=== PATIENT | female | born 1960 | race Caucasian/White ===

== ENCOUNTER 2016-02-24 15:32 | Emergency (ER) | payer OTHER, MEDICAID ==
[2016-02-24] MEDS ORDERED: PROPARACAINE 0.5% OPHTH DROPS 15 ML LEFTEYE STA (16:08)
[2016-02-24] MEDS ORDERED: PROPARACAINE 0.5% OPHTH DROPS 15 ML ONE (16:18)
== END 2016-02-24 16:54 | disposition home or self-care (01) ==
DX: S00.83XA Contusion of other part of head, initial encounter (principal); S00.01XA Abrasion of scalp, initial encounter; S00.212A Abrasion of left eyelid and periocular area, initial encounter; W10.9XXA Fall (on) (from) unspecified stairs and steps, initial encounter; Y93.01 Activity, walking, marching and hiking; Y99.8 Other external cause status; I10 Essential (primary) hypertension; Z86.73 Personal history of transient ischemic attack (TIA), and cerebral infarction without residual deficits
CPT/HCPCS: 70486; 99283; J3490

== ENCOUNTER 2016-07-18 20:42 | Emergency (ER) | payer MEDICARE, MEDICAID, OTHER ==
--- NOTE | 2016-07-18 21:51 | ED Physician Documentation ---
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) Timing - onset: Last night Timing - details: Abrupt onset, Still present Similar symptoms before: Has not had sx before Recently seen: Not recently seen Review of Systems Constitutional: denies: Fever, Chills Skin: denies: Rash, Lesions Neurologic: denies: Focal weakness, Numbness PD PAST MEDICAL HISTORY - Past Medical History Cardiovascular: Hypertension Neuro: CVA, TIA, Headache/migraine Psych: Depression, Post traumatic stress disorder Musculoskeletal: Osteoarthritis, Chronic back pain - Past Surgical History Past Surgical History: Yes General: Cholecystectomy Ortho: Arthroscopic surgery, Carpal Tunnel surgery, 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, Hysterectomy HEENT: Tonsil/Adenoidectomy - Present Medications Home Medications: Ambulatory Orders Medication Instructions Recorded Confirmed Sertraline HCl [Zoloft] 100 mg PO DAILY 01/24/15 07/18/16 Gabapentin 300 mg PO TID 02/24/16 07/18/16 Hydrocodone/Acetaminophen [[place] 1 each PO Q6H PRN #15 tablet 07/18/16 5-325 Tablet] Naproxen [Naprosyn] 500 mg PO BID #20 tablet 07/18/16 - Allergies Allergies/Adverse Reactions: Allergies Allergy/AdvReac Type Severity Reaction Status Date / Time Sulfa (Sulfonamide Allergy Hives Verified 01/24/15 08:59 Antibiotics) - Social History Does the pt smoke?: No Smoking Status: Never smoker Does the pt drink ETOH?: Yes Does the pt have substance abuse?: No - Immunizations Immunizations are current?: Yes - POLST Patient has POLST: No PD ED PE NORMAL - Vitals Vital signs reviewed: Yes - General General: Alert and oriented X 3, Well developed/nourished - Back Back: No CVA TTP, No spinal TTP - Derm Derm: Normal color, Warm and dry, No rash - Extremities Extremities: Other (right hip with tenderness over greater trochanter. No deformity.) Results - Vitals Vitals: Oxygen O2 Source Room air - Rads (name of study) hip Radiology: Prelim report reviewed, EMP read contemporaneously (no fractures) PD MEDICAL DECISION MAKING - ED course Complexity details: reviewed results, considered differential, d/w patient Departure - Departure Disposition: 01 Home, Self Care Clinical Impression: Strain of right hip Qualifiers: Encounter type: initial encounter Qualified Code(s): S76.011A - Strain of muscle, fascia and tendon of right hip, initial encounter Condition: Stable Record reviewed to determine appropriate education?: Yes Instructions: ED Sprain Hip [facility] [Provider Group] Prescriptions: Naproxen [Naprosyn] 500 mg PO BID #20 tablet Hydrocodone/Acetaminophen [[place] 5-325 Tablet] 1 each PO Q6H PRN #15 tablet PRN Reason: Pain Comments: Activity as able based on comfort. Naproxen twice daily for a week. Add Tylenol or hydrocodone as needed for pains. Recheck if not better in several days to a week. Discharge Date/Time: 07/18/16 23:26
[2016-07-18] MEDS ORDERED: IBUPROFEN 600 MG TABLET PO STA (22:12)
[2016-07-18] MEDS ORDERED: HYDROcod/ACETAM 5/325 MG TABLET PO STA (22:12)
[2016-07-18] MEDS ORDERED: oxyCOD/ACETAMIN 5 MG/325 MG TABLET PO ONE (22:15)
[2016-07-18] MEDS ORDERED: IBUPROFEN 600 MG TABLET PO ONE (22:15)
[2016-07-18] MEDS ORDERED: HYDROcod/ACETAM 5/325 MG TABLET ONE (22:19)
[2016-07-18 22:28] VITALS: BP 140/68
--- NOTE | 2016-07-18 22:54 | XRAY Preliminary Report ---
Exam: XR Hip w/Pelvis 2-3V RT IMPRESSION: 1. No acute fracture or dislocation seen. 2. Mild degenerative joint disease in the right hip. [facility] SITE ID: [id number]
--- NOTE | 2016-07-18 22:56 | XRAY Report ---
EXAM: RIGHT HIP AND PELVIS RADIOGRAPHY EXAM DATE: 07/18/2016 10:44 PM. HISTORY: Right lateral hip pain after twisting movement. COMPARISONS: None. TECHNIQUE: 1 view of the pelvis and 1 view of the hip. FINDINGS: Bones: No acute fracture seen. Postoperative changes in the lower lumbar spine with posterior metalli c fusion. Joints: No dislocation. Mild degenerative joint disease in the right hip. Soft Tissues: Grossly unremarkable. IMPRESSION: 1. No acute fracture or dislocation seen. 2. Mild degenerative joint disease in the right hip. [facility] Referring Provider Line: [phone] SITE ID: [id number]
[2016-07-18] MEDS ORDERED: HYDROcod/ACET 5/325 Prepack 6 PO ONE ×2 (22:58→23:15)
== END 2016-07-18 23:26 | disposition home or self-care (01) ==
LOC: ED 20:42
DX: S76.911A Strain of unspecified muscles, fascia and tendons at thigh level, right thigh, initial encounter (principal); X50.0XXA Overexertion from strenuous movement or load, initial encounter; I10 Essential (primary) hypertension; Z86.73 Personal history of transient ischemic attack (TIA), and cerebral infarction without residual deficits; M19.90 Unspecified osteoarthritis, unspecified site
CPT/HCPCS: 73502; 99283; A9270

== ENCOUNTER 2016-08-06 14:01 | Emergency (ER) | payer MEDICARE, OTHER, MEDICAID ==
[2016-08-06 14:11] VITALS: BP 144/76
--- NOTE | 2016-08-06 15:29 | XRAY Preliminary Report ---
Exam: XR Hand 3 View LT IMPRESSION: 1. No acute fracture evident. 2. Degenerative changes noted above. [facility] SITE ID: [id number]
--- NOTE | 2016-08-06 15:32 | XRAY Report ---
EXAM: LEFT HAND RADIOGRAPHY EXAM DATE: 08/06/2016 02:47 PM. CLINICAL HISTORY: Injury. COMPARISON: None. TECHNIQUE: 3 views. FINDINGS: Bones: Normal. No fractures or bone lesions. A screw overlies triquetral bone. Joints: Positive ulnar variance. Narrowing of radiocarpal joint space. Osteophytes along first carpometacarpal joint. Soft Tissues: Normal. No soft tissue swelling. IMPRESSION: 1. No acute fracture evident. 2. Degenerative changes noted above. [facility] Referring Provider Line: [phone] SITE ID: [id number]
== END 2016-08-06 16:06 | disposition left against medical advice (07) ==
LOC: ED 14:01
DX: Z53.21 Procedure and treatment not carried out due to patient leaving prior to being seen by health care provider (principal)

== ENCOUNTER 2017-03-06 12:49 | Emergency (ER) | payer MEDICARE, OTHER, MEDICAID ==
--- NOTE | 2017-03-06 13:47 | XRAY Report ---
EXAM: LEFT SHOULDER RADIOGRAPHY EXAM DATE: 03/06/2017 01:23 PM. CLINICAL HISTORY: Injury. COMPARISON: None. TECHNIQUE: 3 views. FINDINGS: Bones: No fracture or destructive bony abnormality. There is spurring of the acromioclavicular joint. Joints: Joint space and alignment is satisfactory. Soft tissues: Negative for soft tissue calcifications and left pneumothorax. IMPRESSION: No fracture or subluxation. Degenerative disease of the acromioclavicular joint. [facility] Referring Provider Line: [phone] SITE ID: [id number]
--- NOTE | 2017-03-06 14:07 | ED Physician Documentation ---
PD HPI UPPER EXT INJURY - Stated complaint Stated Complaint: LEFT SHOULDER PX - Chief complaint Chief Complaint: Ext Problem - History obtained from History obtained from: Patient - History of Present Illness Location: Right, Shoulder (She had a near fall yesterday and kind of had to throw a hay bale to prevent from falling and felt a pop in the anterior and posterior left shoulder and has persistent pain and difficulty with range of motion. 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, Hysterectomy HEENT: Tonsil/Adenoidectomy - Present Medications Home Medications: Ambulatory Orders Medication Instructions Recorded Confirmed Sertraline HCl [Zoloft] 100 mg PO DAILY 01/24/15 08/06/16 Gabapentin 300 mg PO TID 02/24/16 08/06/16 Bimatoprost 0.01% Ophth Dops 1 drops OP DAILY 08/06/16 08/06/16 [[place] 0.01% Ophth Drops] HYDROcod/ACETAM 5/325 [[place]ame[place] 5/325] 1 - 2 ea PO Q6H PRN #15 tablet 03/06/17 - Allergies Allergies/Adverse Reactions: Allergies Allergy/AdvReac Type Severity Reaction Status Date / Time Sulfa (Sulfonamide Allergy Hives Verified 03/06/17 13:02 Antibiotics) - Social History Does the pt smoke?: No Smoking Status: Never smoker Does the pt drink ETOH?: Yes Does the pt have substance abuse?: No - Immunizations Immunizations are current?: Yes - POLST Patient has POLST: No PD ED PE NORMAL - Vitals Vital signs reviewed: Yes - General General: Alert and oriented X 3, No acute distress - Neck Neck: Supple, no meningeal sign, No bony TTP - Extremities Extremities: Other (Mild tenderness over the top and posterior of the left shoulder, abducts to about 90 but no further, no better passively than actively , negative supraspinatus testing, painless internal and external rotation.) - Neuro Neuro: Alert and oriented X 3, Normal speech Results - Vitals Vitals: Vital Signs - 24 hr 03/06/17 13:00 Temperature 36.9 C Heart Rate 87 Respiratory 18 Rate Blood Pressure 153/67 H O2 Saturation 100 Oxygen O2 Source Room air - Rads (name of study) 3 views of the left shoulder Radiology: EMP read contemporaneously (Degenerative disease of the acromioclavicular joint without acute fracture.) Departure - Departure Disposition: 01 Home, Self Care Clinical Impression: Sprain of left shoulder Qualifiers: Encounter type: initial encounter Shoulder sprain type: other part of shoulder region Qualified Code(s): S43.492A - Other sprain of left shoulder joint, initial encounter Condition: Good Record reviewed to determine appropriate education?: Yes Instructions: ED Sprain Shoulder Follow-Up: [facility] [Provider Group] - Within 1 week Prescriptions: HYDROcod/ACETAM 5/325 [[place] 5/325] 1 - 2 ea PO Q6H PRN #15 tablet PRN Reason: Pain Comments: Do not drink or drive while taking narcotic pain medication. Note that many narcotic pain relievers also contain Tylenol/acetaminophen. Please ensure that your total dose of acetaminophen from all sources does not exceed 3 g (3000 mg) per day. You may get constipated while on this medication. Take a stool softener such as Colace twice a day while you are on it. Also add an [id number] laxative such as senna or MiraLAX on any day that you do not have a bowel movement. If you received a narcotic pain medication or sedative while in the emergency department, do not drive for the next 24 hours. Your blood pressure was elevated today on check into the emergency department. This does not mean that you have hypertension, it is a common phenomenon to come to the emergency department and have elevated blood pressure. I recommend that you see your primary care physician within the week to have it rechecked when you are feeling better.
[2017-03-06 14:34] VITALS: BP 137/65
== END 2017-03-06 14:46 | disposition home or self-care (01) ==
LOC: ED 12:49
DX: S43.492A Other sprain of left shoulder joint, initial encounter (principal); X50.0XXA Overexertion from strenuous movement or load, initial encounter; I10 Essential (primary) hypertension; Z86.73 Personal history of transient ischemic attack (TIA), and cerebral infarction without residual deficits; M19.90 Unspecified osteoarthritis, unspecified site
CPT/HCPCS: 99283

== ENCOUNTER 2017-05-07 20:05 | Emergency (ER) | payer MEDICARE, OTHER, MEDICAID ==
[2017-05-07] MEDS ORDERED: DEXAMETHASONE 10 MG/ML VIAL PO STA (21:37)
[2017-05-07] MEDS ORDERED: CYCLOBENZAPRINE 10 MG TABLET PO STA (21:37)
[2017-05-07] MEDS ORDERED: KETOROLAC 60 MG/2 ML VIAL IM STA (21:37)
--- NOTE | 2017-05-07 21:45 | ED Physician Documentation ---
PD HPI LOWER EXT INJURY - Stated complaint Stated Complaint: BACK PX - Chief complaint Chief Complaint: Ext Problem - History obtained from History obtained from: Patient, Family - History of Present Illness PD HPI LOW EXT INJURY LOCATION: Left, Buttock Type of injury: Other (bowling) Timing - onset: Yesterday Timing - details: Gradual onset, Still present Worsened by: Moving, Palpating Similar symptoms before: Has not had sx before Recently seen: Not recently seen - Additional information Additional information: Patient is a 56 year old female with no significant past medical history who is presenting to the emergency department for left gluteal pain. patient states that she really noticed the pain today. patient denies any trauma but does report that she bowled four games two days ago. Patient states that she does not usually bowl. Review of Systems Constitutional: denies: Fever, Chills Eyes: reports: Reviewed and negative Ears: reports: Reviewed and negative Nose: reports: Reviewed and negative Throat: reports: Reviewed and negative Cardiac: reports: Reviewed and negative Respiratory: reports: Reviewed and negative GI: denies: Abdominal Pain, Nausea, Vomiting : denies: Dysuria, Frequency, Hesitancy, Incontinent Skin: denies: Rash, Lesions Musculoskeletal: reports: Extremity pain. 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, Hysterectomy HEENT: Tonsil/Adenoidectomy - Present Medications Home Medications: Ambulatory Orders Medication Instructions Recorded Confirmed Sertraline HCl [Zoloft] 100 mg PO DAILY 01/24/15 08/06/16 Cyclobenzaprine [Flexeril] 10 mg PO TID PRN #10 tablet 05/07/17 - Allergies Allergies/Adverse Reactions: Allergies Allergy/AdvReac Type Severity Reaction Status Date / Time Sulfa (Sulfonamide Allergy Hives Verified 05/07/17 20:18 Antibiotics) - Social History Does the pt smoke?: No Smoking Status: Never smoker Does the pt drink ETOH?: Yes Does the pt have substance abuse?: No - Immunizations Immunizations are current?: Yes - POLST Patient has POLST: No PD ED PE NORMAL - Vitals Vital signs reviewed: Yes - General General: Alert and oriented X 3, No acute distress - HEENT HEENT: Atraumatic, PERRL - Neck Neck: Supple, no meningeal sign - Cardiac Cardiac: RRR - Respiratory Respiratory: No respiratory distress - Abdomen Abdomen: Non distended - Derm Derm: Normal color, No rash - Neuro Neuro: Alert and oriented X 3, No motor deficit, No sensory deficit, Normal speech Eye Opening: Spontaneous PD ED PE EXPANDED - Extremities Extremities: Left leg (tenderness to palpation of left gluteal region, no deformity ) Results - Vitals Vitals: Vital Signs - 24 hr 05/07/17 05/07/17 20:16 21:57 Temperature 36.3 C L 36.6 C Heart Rate 75 75 Respiratory 16 16 Rate Blood Pressure 144/60 H 135/54 H O2 Saturation 99 96 Oxygen O2 Source Room air PD MEDICAL DECISION MAKING - ED course Complexity details: reviewed old records, reviewed results, re-evaluated patient , considered differential, d/w patient, d/w family ED course: Patient was seen and examined at bedside. Patient was well appearing and in no acute distress. Patient was treated with toradol, decadron and flexeril. patient responded well to the therapy. Patient required no further work up and was stable for discharge with outpatient follow up. Departure - Departure Disposition: 01 Home, Self Care Clinical Impression: Muscle strain Condition: Good Instructions: ED Spasm Muscle Follow-Up: Treasure Cheatham PA-C [Primary Care Provider] - As Needed Prescriptions: Cyclobenzaprine [Flexeril] 10 mg PO TID PRN #10 tablet PRN Reason: Spasms Comments: Your symptoms are likely muscular in nature. You should alternate between motrin and tylenol as needed for pain, as well as alternating between ice and heat for pain. You can take the flexeril for spasm but you cannot drink alcohol , drive or operate heavy machinery while taking it. You should follow up with your doctor if your symptoms don't improve. You may return to the emergency department at any time for new, worsening or uncontrollable symptoms. Discharge Date/Time: 05/07/17 21:58
[2017-05-07 21:57] VITALS: BP 135/54
== END 2017-05-07 21:58 | disposition home or self-care (01) ==
LOC: ED 20:05
DX: S76.312A Strain of muscle, fascia and tendon of the posterior muscle group at thigh level, left thigh, initial encounter (principal); X58.XXXA Exposure to other specified factors, initial encounter; I10 Essential (primary) hypertension; Z86.73 Personal history of transient ischemic attack (TIA), and cerebral infarction without residual deficits
CPT/HCPCS: 96372; 99283; A9270

== ENCOUNTER 2017-05-13 12:36 | Emergency (ER) | payer MEDICARE, OTHER, MEDICAID ==
[2017-05-13 12:54] VITALS: BP 151/82
--- NOTE | 2017-05-13 13:19 | ED Physician Documentation ---
PD HPI URI - Stated complaint Stated Complaint: CP/KEYES/THROAT PX - Chief complaint Chief Complaint: Resp - History obtained from History obtained from: Patient - History of Present Illness Timing - onset: Last night Timing duration: Hours Timing details: Abrupt onset (she had feeling of acid/reflux without true vomiting and then has had chest discomfort since, into this morning.), Still present Associated symptoms: Chest pain. No: Fever, Sore throat, Dry cough, Dyspnea, NVD, Bilateral edema Contributing factors: No: Sick contact, Travel, Immunocompromised Worsened by: No: Activity Similar symptoms before: No diagnosis (has heart burn and some feelings of reflux intermittently.) Recently seen: Not recently seen Review of Systems Constitutional: denies: Fever, Chills Nose: denies: Rhinorrhea / runny nose, Congestion Throat: denies: Sore throat Cardiac: reports: Chest pain / pressure. denies: Palpitations Respiratory: denies: Dyspnea, Cough GI: reports: Nausea. 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, Hysterectomy HEENT: Tonsil/Adenoidectomy - Present Medications Home Medications: Ambulatory Orders Medication Instructions Recorded Confirmed Sertraline HCl [Zoloft] 100 mg PO DAILY 01/24/15 08/06/16 Cyclobenzaprine [Flexeril] 10 mg PO TID PRN #10 tablet 05/07/17 Famotidine [Pepcid] 20 mg PO ONCE #30 tablet 05/13/17 Lidocaine Viscous 2% [Xylocaine 5 ml PO Q4H PRN #1 bottle 05/13/17 Viscous 2%] - Allergies Allergies/Adverse Reactions: Allergies Allergy/AdvReac Type Severity Reaction Status Date / Time Sulfa (Sulfonamide Allergy Hives Verified 05/13/17 12:54 Antibiotics) - Social History Does the pt smoke?: No Smoking Status: Never smoker Does the pt drink ETOH?: Yes Does the pt have substance abuse?: No - Immunizations Immunizations are current?: Yes - POLST Patient has POLST: No PD ED PE NORMAL - Vitals Vital signs reviewed: Yes - General General: Alert and oriented X 3, No acute distress, Well developed/nourished - HEENT HEENT: Pharynx benign - Neck Neck: Supple, no meningeal sign, No adenopathy - Cardiac Cardiac: RRR, No murmur - Respiratory Respiratory: Clear bilaterally - Abdomen Abdomen: Soft, Non tender - Back Back: No CVA TTP - Derm Derm: Normal color, Warm and dry - Extremities Extremities: No tenderness to palpate, Normal ROM s pain, No edema, No calf tenderness / cord - Neuro Neuro: Alert and oriented X 3, No motor deficit, Normal speech - Psych Psych: Normal mood, Normal affect Results - Vitals Vitals: Oxygen O2 Source Room air - EKG (time done) 12:47 Rate: Rate (enter#) (82) Rhythm: NSR [place]: Normal Intervals: Normal SC QRS: Normal Ischemia: Normal ST segments. No: ST elevation c/w ischemia, ST depression PD MEDICAL DECISION MAKING - ED course Complexity details: reviewed results, re-evaluated patient (felt improved with GI cocktail. ), considered differential, d/w patient Departure - Departure Disposition: 01 Home, Self Care Clinical Impression: Reflux esophagitis Chest pain Qualifiers: Chest pain type: precordial pain Qualified Code(s): R07.2 - Precordial pain Condition: Stable Record reviewed to determine appropriate education?: Yes Instructions: ED GERD Prescriptions: Famotidine [Pepcid] 20 mg PO ONCE #30 tablet Lidocaine Viscous 2% [Xylocaine Viscous 2%] 5 ml PO Q4H PRN #1 bottle PRN Reason: Pain Comments: Your chest x-ray is okay. The improvement with the numbing medicine suggests an esophageal irritation which is usually reflux of acid. Use an acid reducing medicine famotidine daily for the next month. He can use the lidocaine mixed with some antacid periodically if needed for the discomfort and use Tylenol if needed for pains or ibuprofen. This should improve over the next couple of days. Discharge Date/Time: 05/13/17 14:32
[2017-05-13] MEDS ORDERED: LIDOCAINE VISCOUS 2% 15 ML UDC MM STA (13:35)
[2017-05-13] MEDS ORDERED: HYDROcod/ACETAM 5/325 MG TABLET PO STA (13:35)
[2017-05-13] MEDS ORDERED: BENZONATATE 100 MG CAPSULE PO STA (13:35)
[2017-05-13] MEDS ORDERED: MAG HYDROX/AL HYDROX/SIMETH 30 ML UDC PO STA (13:35)
--- NOTE | 2017-05-13 14:30 | XRAY Report ---
EXAM: CHEST RADIOGRAPHY EXAM DATE: 05/13/2017 02:02 PM. CLINICAL HISTORY: Sternal area chest pain. COMPARISON: None. TECHNIQUE: 2 views. FINDINGS: Lungs/Pleura: No focal opacities evident. No pleural effusion. No pneumothorax. Normal volumes. Mediastinum: Heart and mediastinal contours are unremarkable. Other: The lateral image, there appears to be anterior spurring at the manubrium and body of sternum junction. IMPRESSION: 1. No acute cardiopulmonary amount. 2. Chronic-appearing spurring of the anterior sternum. Uncertain significance. [facility] Referring Provider Line: [phone] SITE ID: [id number]
--- NOTE | 2017-05-13 14:30 | XRAY Preliminary Report ---
Exam: XR CHEST 2 VIEW X-RAY IMPRESSION: 1. No acute cardiopulmonary amount. 2. Chronic-appearing spurring of the anterior sternum. Uncertain significance. [facility] SITE ID: [id number]
== END 2017-05-13 14:32 | disposition home or self-care (01) ==
LOC: ED 12:36
DX: K21.0 Gastro-esophageal reflux disease with esophagitis (principal); R07.2 Precordial pain; I10 Essential (primary) hypertension; Z86.73 Personal history of transient ischemic attack (TIA), and cerebral infarction without residual deficits
CPT/HCPCS: 71046; 93005; 99283; A9270

== ENCOUNTER 2017-06-08 13:33 | Emergency (ER) | payer MEDICARE, OTHER, MEDICAID ==
[2017-06-08 13:48] VITALS: BP 138/64
--- NOTE | 2017-06-08 14:25 | XRAY Report ---
EXAM: LEFT KNEE RADIOGRAPHY EXAM DATE: 06/08/2017 02:03 PM. CLINICAL HISTORY: Hit horse trailer yesterday, sharp pain since. COMPARISON: Previous exam of 04/29/2014. TECHNIQUE: 4 views. FINDINGS: Bones: Normal. No fractures or bone lesions. Joints: Normal. No effusion. No subluxations. Soft Tissues: Prominent medial soft tissue swelling noted about the distal femur. IMPRESSION: Prominent medial soft tissue swelling noted about the distal femur without underlying fra cture. [facility] Referring Provider Line: [phone] SITE ID: [id number]
[2017-06-08] MEDS ORDERED: HYDROcod/ACETAM 5/325 MG TABLET PO STA (14:36)
--- NOTE | 2017-06-08 14:40 | ED Physician Documentation ---
PD HPI LOWER EXT INJURY - Stated complaint Stated Complaint: LT KNEE SHARP PX - Chief complaint Chief Complaint: Ext Problem - History obtained from History obtained from: Patient, Family - History of Present Illness PD HPI LOW EXT INJURY LOCATION: Left, Knee Type of injury: Blunt / blow Where injury occurred: Home Timing - onset: Yesterday Timing - duration: Days (1) Timing - details: Abrupt onset Pain level max: 7 Pain level now: 6 Improved by: Rest, Ice, Immobilization Worsened by: Moving, Palpating Associated symptoms: Swelling. No: Weakness, Numbness, Tingling Contributing factors: No: Anticoagulated Recently seen: Not recently seen - Additional information Additional information: Patient is a 56-year-old female who struck her left knee on her horse trailer yesterday. Increased pain especially with walking today. Review of Systems Constitutional: denies: Fever, Chills Respiratory: denies: Cough GI: denies: Nausea, Vomiting, Diarrhea Skin: denies: Rash Musculoskeletal: reports: Back pain (Chronic back pain, unchanged). 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, Hysterectomy HEENT: Tonsil/Adenoidectomy - Present Medications Home Medications: Ambulatory Orders Medication Instructions Recorded Confirmed Sertraline HCl [Zoloft] 100 mg PO DAILY 01/24/15 08/06/16 Cyclobenzaprine [Flexeril] 10 mg PO TID PRN #10 tablet 05/07/17 Famotidine [Pepcid] 20 mg PO ONCE #30 tablet 05/13/17 Lidocaine Viscous 2% [Xylocaine 5 ml PO Q4H PRN #1 bottle 05/13/17 Viscous 2%] Hydrocodone/Acetaminophen 1 - 2 each PO Q6H PRN #14 tablet 06/08/17 [Hydrocodon-Acetaminophen 5-325] - Allergies Allergies/Adverse Reactions: Allergies Allergy/AdvReac Type Severity Reaction Status Date / Time Sulfa (Sulfonamide Allergy Hives Verified 05/13/17 12:54 Antibiotics) - Social History Does the pt smoke?: No Smoking Status: Never smoker Does the pt drink ETOH?: Yes Does the pt have substance abuse?: No - Immunizations Immunizations are current?: Yes - POLST Patient has POLST: No PD ED PE NORMAL - Vitals Vital signs reviewed: Yes - General General: Alert and oriented X 3, No acute distress - HEENT HEENT: Moist mucous membranes - Neck Neck: Supple, no meningeal sign - Cardiac Cardiac: RRR, Strong equal pulses - Respiratory Respiratory: No respiratory distress, Clear bilaterally - Derm Derm: Warm and dry - Extremities Extremities: Other (L knee - TTP along the medial aspect of the L knee. No effusion. ACL, MCL, PCL, LCL are intact. NVI. ) - Neuro Neuro: Alert and oriented X 3 Results - Vitals Vitals: Vital Signs - 24 hr 06/08/17 13:46 Temperature 36.3 C L Heart Rate 71 Respiratory 18 Rate Blood Pressure 138/64 H O2 Saturation 99 Oxygen O2 Source Room air - Rads (name of study) L knee xray Radiology: Prelim report reviewed, EMP read contemporaneously, See rad report ( Prominent medial soft tissue swelling noted about the distal femur without underlying fracture) PD MEDICAL DECISION MAKING - ED course Complexity details: reviewed results, re-evaluated patient, considered differential, d/w patient, d/w family ED course: Patient is a 56-year-old female who bumped her left knee on her horse trailer yesterday and is now having more pain and swelling today. Normal x-ray. Normal ligamentous exam. Appears to have a contusion. Given crutches and Joe bandage. Will prescribe pain medication for home and follow-up closely with her doctor. No significant joint effusion. Neurovascularly intact. Patient counseled regarding signs and symptoms for which I believe and urgent re- evaluation would be necessary. Patient with good understanding of and agreement to plan and is comfortable going home at this time This document was made in part using voice recognition software. While efforts are made to proofread this document, sound alike and grammatical errors may occur. Departure - Departure Disposition: 01 Home, Self Care Clinical Impression: Contusion of knee, left Qualifiers: Encounter type: initial encounter Qualified Code(s): S80.02XA - Contusion of left knee, initial encounter Condition: Good Instructions: ED Contusion Lower Ext Follow-Up: your,doctor in 1 week [Other] Prescriptions: Hydrocodone/Acetaminophen [Hydrocodon-Acetaminophen 5-325] 1 - 2 each PO Q6H PRN #14 tablet PRN Reason: pain Comments: Return if you worsen. This should improve over the next few days. You may bear weight as tolerated. Follow-up with your doctor for repeat evaluation once the swelling has decreased. Do not drink alcohol or drive while on narcotic pain medicine. Note that many narcotic pain relievers also contain tylenol/acetaminophen. Please ensure that your total dose of acetaminophen from all sources does not exceed 3 grams (3000mg) per day. You may constipated on this medication, take a stool softener such as "Colace" twice a day while you are on it. Also recommend a tint-meh-ckbrapi laxative such as senna or MiraLAX any day that you do not have a bowel movement. If you received narcotic pain medication in the emergency department, do not drive or operate machinery for the next 24 hours. Discharge Date/Time: 06/08/17 14:46
== END 2017-06-08 14:46 | disposition home or self-care (01) ==
LOC: ED 13:33
DX: S80.02XA Contusion of left knee, initial encounter (principal); W22.09XA Striking against other stationary object, initial encounter; Y92.009 Unspecified place in unspecified non-institutional (private) residence as the place of occurrence of the external cause; I10 Essential (primary) hypertension; K21.9 Gastro-esophageal reflux disease without esophagitis; M19.90 Unspecified osteoarthritis, unspecified site; Z86.73 Personal history of transient ischemic attack (TIA), and cerebral infarction without residual deficits
CPT/HCPCS: 73564; 99283; A9270

== ENCOUNTER 2017-07-03 19:33 | Emergency (ER) | payer MEDICARE, OTHER, MEDICAID ==
[2017-07-03 19:40] VITALS: BP 150/65
[2017-07-03] MEDS ORDERED: oxyCOD/ACETAMIN 5 MG/325 MG TABLET PO STA (20:35)
--- NOTE | 2017-07-03 20:39 | ED Physician Documentation ---
PD HPI MAJOR TRAUMA - Stated complaint Stated Complaint: BACK PAIN/INJURY - BUCKED FROM HORSE - Chief complaint Chief Complaint: Trauma Ch/Bk - History obtained from History obtained from: Patient - History of Present Illness Mechanism of injury: Fell (from large horse, backwards and on right side. Hit head with no LOC, but has mod headache, also neck pain central and right side and diff Rotating neck to the right. She has mid and lower back pain and pain of the Right paralumbar areas. She says it is her hip but she points to her back. 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, Hysterectomy HEENT: Tonsil/Adenoidectomy - Present Medications Home Medications: Ambulatory Orders Medication Instructions Recorded Confirmed Sertraline HCl [Zoloft] 100 mg PO DAILY 01/24/15 08/06/16 Cyclobenzaprine [Flexeril] 10 mg PO TID PRN #10 tablet 05/07/17 Famotidine [Pepcid] 20 mg PO ONCE #30 tablet 05/13/17 Lidocaine Viscous 2% [Xylocaine 5 ml PO Q4H PRN #1 bottle 05/13/17 Viscous 2%] Hydrocodone/Acetaminophen 1 - 2 each PO Q6H PRN #14 tablet 06/08/17 [Hydrocodon-Acetaminophen 5-325] Oxycodone HCl/Acetaminophen 1 - 2 tab PO Q4H PRN #10 tablet 07/03/17 [Percocet 5-325 mg Tablet] - Allergies Allergies/Adverse Reactions: Allergies Allergy/AdvReac Type Severity Reaction Status Date / Time Sulfa (Sulfonamide Allergy Hives Verified 07/03/17 19:40 Antibiotics) - Social History Does the pt smoke?: No Smoking Status: Never smoker Does the pt drink ETOH?: Yes Does the pt have substance abuse?: No - Immunizations Immunizations are current?: Yes - POLST Patient has POLST: No PD ED PE NORMAL - Vitals Vital signs reviewed: Yes - General General: Alert and oriented X 3, No acute distress - HEENT HEENT: PERRL, EOMI, Pharynx benign - Neck Neck: Other (Mild tenderness in the mid C-spine without deformity.) - Cardiac Cardiac: RRR, No murmur - Respiratory Respiratory: No respiratory distress, Clear bilaterally - Abdomen Abdomen: Non tender - Back Back: Other (She has 2 focal areas of tenderness of the spine, one around T8 and one around L3.) - Extremities Extremities: Other (Hips have painless and internal and external rotation nontender. The patient has equal and normal Achilles and patellar reflexes bilaterally. Normal sensation in all areas of the legs. Patient denies saddle anesthesia. Normal strength in flexion-extension at the ankles, knees, and flexion of the hips.) - Neuro Neuro: Alert and oriented X 3 Eye Opening: Spontaneous Motor: Obeys Commands Verbal: Oriented GCS Score: 15 - Psych Psych: Normal mood, Normal affect Results - Vitals Vitals: Vital Signs - 24 hr 07/03/17 19:37 Temperature 36.5 C Heart Rate 78 Respiratory 18 Rate Blood Pressure 150/65 H O2 Saturation 100 Oxygen O2 Source Room air - Rads (name of study) CT head, C Spine Radiology: EMP read contemporaneously (MADELYN) T spine and L spine XRs Radiology: EMP read contemporaneously (GINI JOSHI) Departure - Departure Disposition: 01 Home, Self Care Clinical Impression: Fall from horse Qualifiers: Encounter type: initial encounter Qualified Code(s): V80.010A - Animal-rider injured by fall from or being thrown from horse in noncollision accident, initial encounter Back pain Qualifiers: Back pain location: back pain in unspecified location Chronicity: acute Strain of right hip Qualifiers: Encounter type: initial encounter Qualified Code(s): S76.011A - Strain of muscle, fascia and tendon of right hip, initial encounter Neck sprain Qualifiers: Encounter type: initial encounter Qualified Code(s): S13.9XXA - Sprain of joints and ligaments of unspecified parts of neck, initial encounter Head injury Qualifiers: Encounter type: initial encounter Qualified Code(s): S09.90XA - Unspecified injury of head, initial encounter Condition: Good Record reviewed to determine appropriate education?: Yes Instructions: ED Head Injury Closed, ED Sprain Thoracic Spine Prescriptions: Oxycodone HCl/Acetaminophen [Percocet 5-325 mg Tablet] 1 - 2 tab PO Q4H PRN #10 tablet PRN Reason: Pain Comments: Call your doctor to arrange a follow-up appointment, make the next available appointment. In the interim, return anytime if worse or if new symptoms develop. Your blood pressure was elevated today on check into the emergency department. This does not mean that you have hypertension, it is a common phenomenon to come to the emergency department and have elevated blood pressure. I recommend that you see your primary care physician within the week to have it rechecked when you are feeling better. Do not drink or drive while taking narcotic pain medication. Note that many narcotic pain relievers also contain Tylenol/acetaminophen. Please ensure that your total dose of acetaminophen from all sources does not exceed 3 g (3000 mg) per day. You may get constipated while on this medication. Take a stool softener such as Colace twice a day while you are on it. Also add an moyo-hrw-tfanjcf laxative such as senna or MiraLAX on any day that you do not have a bowel movement. If you received a narcotic pain medication or sedative while in the emergency department, do not drive for the next 24 hours.
--- NOTE | 2017-07-03 21:22 | CT Report ---
EXAM: CT CERVICAL SPINE WITHOUT CONTRAST DATE: 07/03/2017 09:02 PM. HISTORY: Neck inj, fall. COMPARISONS: None. TECHNIQUE: Thin-section axial images were acquired of the cervical spine without contrast. Post-proce ssing: Coronal and sagittal reformats. Other: None. In accordance with CT protocol optimization, one or more of the following dose reduction techniques w ere utilized for this exam: automated exposure control, adjustment of mA and/or KV based on patient s ize, or use of iterative reconstructive technique. FINDINGS: Alignment: No scoliosis or spondylolisthesis. Bones: No fracture or bone lesion. Interspace Levels/Facets: C1-C2: Unremarkable. C2-C3: Unremarkable. C3-C4: Unremarkable. C4-C5: Mild disk space narrowing with spurring. C5-C6: Advanced disk space narrowing with spurring. C6-C7: Mild disk space narrowing with spurring. C7-T1: Unremarkable. Musculature: Normal. No fatty atrophy. Other: The paravertebral and prevertebral soft tissues are unremarkable. The lung apices are clear. IMPRESSION: 1. No acute cervical spine abnormalities. 2. Multilevel degenerative disk disease, advanced at C5-C6. [facility] Referring Provider Line: [phone] SITE ID: [id number]
--- NOTE | 2017-07-03 21:24 | CT Report ---
EXAM: CT HEAD EXAM DATE: 07/03/2017 09:02 PM. CLINICAL HISTORY: Fall. COMPARISON: None. TECHNIQUE: Multiaxial CT images were obtained from the foramen magnum to the vertex. Reformats: Coron al. IV contrast: None. In accordance with CT protocol optimization, one or more of the following dose reduction techniques w ere utilized for this exam: automated exposure control, adjustment of mA and/or KV based on patient s ize, or use of iterative reconstructive technique. FINDINGS: Parenchyma: No intraparenchymal hemorrhage. No evidence of mass, midline shift, or CT findings of inf arction. Bee-white differentiation is distinct. Extraaxial Spaces: Normal for age. No subdural or epidural collections identified. Ventricles: Normal in size and position. Sinuses and Orbits: Imaged paranasal sinuses, orbits, and mastoids show no significant abnormality. Bones: No evidence of fracture or calvarial defect. Other: None. IMPRESSION: No acute intracranial CT abnormality. [facility] Referring Provider Line: [phone] SITE ID: [id number]
--- NOTE | 2017-07-03 21:25 | XRAY Report ---
EXAM: THORACIC SPINE RADIOGRAPHY EXAM DATE: 07/03/2017 09:06 PM. CLINICAL HISTORY: Fall from horse. Back pain. COMPARISON: Chest x-ray 05/13/2017. TECHNIQUE: 2 views. FINDINGS: Alignment: Normal. No spondylolisthesis or scoliosis. Bones: No traumatic or destructive bony abnormalities. Diffuse endplate spurring. Disks: Normal. Disk heights are maintained. Soft Tissues: Normal. The visualized lungs and cardiomediastinal silhouette are normal. IMPRESSION: No acute thoracic spine abnormalities identified. [facility] Referring Provider Line: [phone] SITE ID: [id number]
--- NOTE | 2017-07-03 21:27 | XRAY Report ---
EXAM: LUMBOSACRAL SPINE RADIOGRAPHY EXAM DATE: 07/03/2017 09:06 PM. CLINICAL HISTORY: Fall from horse. Back pain. COMPARISONS: None. TECHNIQUE: 2 views. FINDINGS: Alignment: Normal. No spondylolisthesis or scoliosis. Bones: Five [id number]-[id number] lumbar vertebral bodies are present. No fractures or bone lesions. Disks: Anterior and posterior fusion, L4-S1. Disk space narrowing with spurring at L2-L3 and T12-L1. Sacroiliac Joints: Unremarkable. Soft Tissues: No dilated bowel or excessive stool. IMPRESSION: 1. No acute lumbar spine abnormalities. 2. Anterior and posterior fusion, L4-S1. 3. Degenerative disk disease at T12-L1 and L2-L3. [facility] Referring Provider Line: [phone] SITE ID: [id number]
[2017-07-03] MEDS ORDERED: oxyCODONE/ACET 5/325 Prepack 4 PO STA (21:54)
== END 2017-07-03 22:02 | disposition home or self-care (01) ==
LOC: ED 19:33
DX: M54.5 Low back pain (principal); M54.6 Pain in thoracic spine; S76.011A Strain of muscle, fascia and tendon of right hip, initial encounter; S13.9XXA Sprain of joints and ligaments of unspecified parts of neck, initial encounter; S09.90XA Unspecified injury of head, initial encounter; V80.010A Animal-rider injured by fall from or being thrown from horse in noncollision accident, initial encounter; Y93.52 Activity, horseback riding; I10 Essential (primary) hypertension
CPT/HCPCS: 70450; 72070; 72100; 72125; 99283; A9270